=== PATIENT | female | born 1975 ===

== ENCOUNTER 2018-07-02 22:09 | Emergency (ER) | payer OTHER ==
[2018-07-02 22:45] VITALS: BP 103/61; TEMP 98.2; O2SAT 99
--- NOTE | 2018-07-03 00:31 | ED PDOC ---
Arrival/HPI - General Chief Complaint: Lower Extremity Problem/Injury Time Seen by Provider: 07/02/18 22:56 Historian: Patient - History of Present Illness Narrative History of Present Illness (Text): 07/03/18 00:25 42yo female with no pmhx who present with complaint of right great toe and ankle pain. She states that she slipped and fell earlier. States great toe pain is worse than the ankle pain. Did not take any pain medication. Reports limping with ambulation. Denies any other complaint. Past Medical History - Provider Review Nursing Documentation Reviewed: Yes - Reproductive Menopause: No - Cardiac Hx Cardiac Disorders: No - Psychiatric Hx Substance Use: No - Surgical History Hx Appendectomy: Yes Hx Section: Yes (x3) - Anesthesia Hx Anesthesia: No Family/Social History - Physician Review Nursing Documentation Reviewed: Yes Family/Social History: Unknown Family HX Smoking Status: Current Some Days Smoker Hx Alcohol Use: No Hx Substance Use: No Allergies/Home Meds Allergies/Adverse Reactions: Allergies Penicillins Allergy (Verified 07/02/18 22:46) ANAPHYLAXIS Review of Systems - Physician Review All systems were reviewed & negative as marked: Yes - Review of Systems Constitutional: Normal Eyes: Normal ENT: Normal Respiratory: Normal Cardiovascular: Normal Gastrointestinal: Normal Genitourinary Female: Normal Musculoskeletal: Arthralgias (Right great toe/ankle pain) Skin: Normal Neurological: Normal Endocrine: Normal Hemo/Lymphatic: Normal Psychiatric: Normal Physical Exam Vital Signs Reviewed: Yes Vital Signs Temp Pulse Resp BP Pulse Ox 07/02/18 22:45 98.2 F 73 17 103/61 99 Temperature: Afebrile Blood Pressure: Normal Pulse: Regular Respiratory Rate: Normal Appearance: Positive for: Well-Appearing, Non-Toxic, Comfortable Pain Distress: None Mental Status: Positive for: Alert and Oriented X 3 - Systems Exam Head: Present: Atraumatic, Normocephalic Pupils: Present: PERRL Extroacular Muscles: Present: EOMI Conjunctiva: Present: Normal Mouth: Present: Moist Mucous Membranes Neck: Present: Normal Range of Motion Respiratory/Chest: Present: Clear to Auscultation, Good Air Exchange. No: Respiratory Distress, Accessory Muscle Use Cardiovascular: Present: Regular Rate and Rhythm, Normal S1, S2. No: Murmurs Abdomen: No: Tenderness, Distention, Peritoneal Signs Back: Present: Normal Inspection Upper Extremity: Present: Normal Inspection. No: Cyanosis, Edema Lower Extremity: Present: NORMAL PULSES, Normal ROM (Pain with flexion of right great toe), Tenderness (Right great toe), Neurovascularly Intact. No: Edema, Swelling, Erythema (Ecchymosis over right great toe) Neurological: Present: GCS=15, CN II-XII Intact, Speech Normal Skin: Present: Warm, Dry, Normal Color. No: Rashes Psychiatric: Present: Alert, Oriented x 3, Normal Insight, Normal Concentration Medical Decision Making ED Course and Treatment: 07/03/18 00:37 PT presented for stated history. Right foot xray - Nondisplaced fracture of the distal great toe Right ankle xray - No acute fracture/dislocation Result was DW the pt. Toe bryant tape and ortho shoe given Pt referred to a wind operations supervisor Ibuprofen 600mg given for pain - RAD Interpretation Radiology Orders: 07/02/18 23:15 FOOT RIGHT GREAT TOE ROUTINE [RAD] Stat 07/02/18 23:17 ANKLE RIGHT 3 VIEWS ROUTINE [RAD] Stat - Medication Orders Current Medication Orders: Discontinued Medications Ibuprofen (Motrin Tab) 600 mg PO STAT STA Stop: 07/02/18 23:19 Last Admin: 07/02/18 23:35 Dose: 600 mg MAR Pain/Vitals Document 07/02/18 23:35 SS (Rec: 07/02/18 23:35 SS [id number]) Presence of Pain Presence of Pain Yes Location Left, Right or Bilateral Right Pain Location Body Site 1st Toe Disposition/Present on Arrival - Present on Arrival Any Indicators Present on Arrival: No History of DVT/PE: No History of Uncontrolled Diabetes: No Urinary Catheter: No History of Decub. Ulcer: No History Surgical Site Infection Following: None - Disposition Have Diagnosis and Disposition been Completed?: Yes Diagnosis: Toe fracture, Ankle sprain Disposition: HOME/ ROUTINE Disposition Time: 00:35 Patient Plan: Discharge Patient Problems: Current Active Problems Problem Status Onset Ankle sprain Acute Toe fracture Acute Condition: STABLE Discharge Instructions (ExitCare): Toe Fracture, Ankle Sprain Additional Instructions: Follow up with a Cloth Shader Return to ED for any new symptoms Prescriptions: Ibuprofen [Motrin Tab] 600 mg PO Q6 #20 tab Referrals: Aron Short DPM [Staff Provider] - Follow up with primary Forms: [employer] (Yoruba), WORK NOTE
[2018-07-03 02:20] VITALS: PULSE 85; RESP 18
--- NOTE | 2018-07-03 09:57 | RAD ---
Date of service: 07/03/2018 PROCEDURE: Right Ankle Radiographs. HISTORY: ankle pain s/p trauma COMPARISON: None FINDINGS: BONES: Normal. No fracture. JOINTS: Normal. No osteoarthritis. Ankle mortise maintained. Talar dome intact SOFT TISSUES: Normal. OTHER FINDINGS: None. IMPRESSION: Normal right ankle radiographs.
--- NOTE | 2018-07-03 09:58 | RAD ---
Date of service: 07/03/2018 PROCEDURE: Right Foot Radiographs. HISTORY: Right great toe pain COMPARISON: None. FINDINGS: BONES: Normal. No fracture. JOINTS: Normal. SOFT TISSUES: Normal. OTHER FINDINGS: None. IMPRESSION: Normal right foot radiographs.
== END 2018-07-03 02:19 | disposition home or self-care (01) ==
LOC: ED 22:09
DX: S93.401A Sprain of unspecified ligament of right ankle, initial encounter (principal); S92.424A Nondisplaced fracture of distal phalanx of right great toe, initial encounter for closed fracture; W01.0XXA Fall on same level from slipping, tripping and stumbling without subsequent striking against object, initial encounter